=== PATIENT | male | born 1965 | race African-American/Black ===

== ENCOUNTER 2017-01-12 14:44 | Emergency (ER) | payer OTHER ==
[~2017-01-12] VITALS: Ht 172.7 cm; Wt 84.1 kg
[2017-01-12] MEDS ORDERED: BECL8.7A6 PUFF (15:15)
[2017-01-12] MEDS ORDERED: ABAC1TAB15 PO (15:15)
[2017-01-12] MEDS ORDERED: LISI-662 PO (15:15)
[2017-01-12] MEDS ORDERED: LIDOCAINE HCL 1% 20 ML VIAL INJ ONE (15:45)
[2017-01-12] MEDS ORDERED: BACITRACIN 0.9 GM PACKET OINTMENT TP ONE (15:45)
[2017-01-12 17:26] VITALS: BP 127/77
== END 2017-01-12 17:38 | disposition home or self-care (01) ==
LOC: EMS 14:46
DX: S62.637A Displaced fracture of distal phalanx of left little finger, initial encounter for closed fracture (principal); S61.217A Laceration without foreign body of left little finger without damage to nail, initial encounter; I10 Essential (primary) hypertension; W23.0XXA Caught, crushed, jammed, or pinched between moving objects, initial encounter; Y93.89 Activity, other specified; Y92.89 Other specified places as the place of occurrence of the external cause; Y99.8 Other external cause status
CPT/HCPCS: 12002; 29130; 99284; J3490